=== PATIENT | female | born 1985 | race Caucasian/White ===

== ENCOUNTER → 2017-04-26 | Outpatient (CLI) | payer BC, OTHER ==
[~2017-04-26] MED LIST: FERR325T18 PO; IBUP-1780 PO; OXYC-471 PO; PREN1TAB39 PO; PREN1TAB76 PO
--- NOTE | 2017-04-26 16:30 | Diagnostic Imaging Report ---
EXAMINATION: Ultrasound soft tissue. INDICATION: Right inguinal pain. COMPARISON: There are no prior studies available for comparison. FINDINGS: Reportedly, there is clinical concern regarding inguinal fullness. The ultrasound examination of both inguinal canals fails to show any sign of herniation of the bowel into either inguinal canal. IMPRESSION: There is no evidence for herniation of the bowel into either inguinal canal. Dictated by: Dictated on workstation # [id number]
== END ==
LOC: RAD 14:55
PROVIDERS: ATTEND Nurse Practitioner Family
DX: R10.31 Right lower quadrant pain (principal)
CPT/HCPCS: 76999

== ENCOUNTER 2018-03-05 08:03 | Observation (INO) | payer BC ==
[~2018-03-05] VITALS: Ht 170.2 cm; Wt 55.8 kg
[2018-03-05] MEDS ORDERED: KETOROLAC 60 MG/2 ML VIAL IM STA (08:54)
[2018-03-05] MEDS ORDERED: ORPHENADRINE 60 MG/2 ML (NORFLEX) AMP IM STA (08:54)
--- NOTE | 2018-03-05 09:09 | ED Back Pain ---
General Chief Complaint: Back Problems Stated Complaint: BACK PAIN Nursing Triage Note: PT CO OF BACK PAIN PT OUT OF CAR BY THIS RN,TO ROOM 10 PER W/C PT DENIES INJURY TO BACK STATES HAS BEEN HURTING FOR A FEW DAYS BUT HAD SUDDEN ONSET OF PAIN APPROX 30 MIN AGO. PT CRYING Nursing Sepsis Screen: No Definite Risk Source of Information: Patient Exam Limitations: No Limitations History of Present Illness Date Seen by Provider: Mar 05, 2018 Time Seen by Provider: 08:45 Initial Comments Here with report of low back pain that started over the last week but is much worse today. Denies bowel or bladder problems. Denies recent injury. She had taken some iogf-jul-mebxabv medicine before but that was not working. She has not had any medicine today. Denies fever or chills. Location: Paraspinous Muscles Timing/Duration: 1 Week Severity: Moderate Pain/Injury Location: Back Radiation: Buttocks, Upper Legs Method of Injury: Unknown Modifying Factors: Improves With Immobilization; Worse With Movement Associated Symptoms: muscle spasms, weakness; No numbness in legs/feet; tingling in legs/feet; No sensory/motor loss; lower back pain; No loss of bladder control, No loss of bowel control Allergies and Home Medications Allergies Coded Allergies: No Known Drug Allergies (Unverified , 10/18/15) Home Medications Cyclobenzaprine HCl 10 Mg Tablet, 10 MG PO Q8H PRN for SPASMS Prescribed by: EVANGELISTA HAMILTON on 03/05/18 1248 Hydrocodone Bit/Acetaminophen 1 Tab Tab, 1-2 EACH PO Q6H PRN for PAIN-MODERATE Prescribed by: EVANGELISTA HAMILTON on 03/05/18 1248 Prednisone 20 Mg Tab, 40 MG PO DAILY Prescribed by: EVANGELISTA HAMILTON on 03/05/18 1248 Patient Home Medication List Home Medication List Reviewed: Yes Review of Systems Constitutional: see HPI; No chills, No fever Respiratory: no symptoms reported Cardiovascular: no symptoms reported Gastrointestinal: No abdominal pain, No nausea, No vomiting Genitourinary: no symptoms reported Musculoskeletal: see HPI, back pain, muscle pain, muscle stiffness, muscle weakness; No neck pain Skin: no symptoms reported Psychiatric/Neurological: Denies Anxiety, Denies Headache; Numbness; Denies Weakness Past Wvvjshd-Gzejyn-Kmsryg Hx Past Med/Social Hx: Reviewed Nursing Past Med/Soc Hx Patient Social History Alcohol Use: Regular Use Number of Drinks Today: 0 Alcohol Beverage of Choice: Wine Recreational Drug Use: No Smoking Status: Current Everyday Smoker Type Used: Cigarettes Former Smoker, Quit: Feb 07, 2015 Recent Foreign Travel: No Contact w/Someone Who Travel: No Recent Infectious Disease Expo: No Recent Hopitalizations: Yes (spinal meningitis @ age 16) Physical Abuse: No Sexual Abuse: No Immunizations Up To Date Tetanus Booster (TDap): Unknown PED Vaccines UTD: No Date of Influenza Vaccine: Jan 20, 2015 Past Medical History Surgeries: No (wisdom teeth) Respiratory: No Cardiac: No Neurological: No : No Last Menstrual Period: Feb 28, 2018 Reproductive Disorders: No Female Reproductive Disorders: Denies HIV/AIDS: No Gastrointestinal: Yes (JUST WITH -HAS SUBSIDED) Gastroesophageal Reflux Musculoskeletal: No Endocrine: No Loss of Vision: Denies Hearing Impairment: Denies Cancer: No Psychosocial: No Integumentary: No Blood Disorders: No Adverse Reaction/Blood Tranf: No (N/A) Family Medical History Reviewed Nursing Family Hx Patient reports no known family medical history. No Pertinent Family Hx Physical Exam Vital Signs Vital Signs - First Documented 03/05/18 08:10 Temp 98.3 Pulse 80 Resp 18 B/P (MAP) 116/92 (100) Pulse Ox 100 Capillary Refill : Less Than 3 Seconds Height, Weight, BMI Height: 5'7.00" Weight: 123lbs. 1.0oz. 55.816022fl; 29.8 BMI Method:Stated General Appearance: WD/WN, Moderate Distress HEENT: PERRL/EOMI, Pharynx Normal Neck: Non Tender, Supple Cardiovascular: Regular Rate, Rhythm, No Murmur Respiratory: Lungs Clear, Normal Breath Sounds Gastrointestinal: Non Tender, Soft Back: No Vertebral Tenderness, Decreased Range of Motion, Muscle Spasm, Other ( bilateral low back pain) Extremity: Normal Inspection, Non Tender, No Calf Tenderness Neurologic/Psychiatric: Alert, Oriented x3, No Motor/Sensory Deficits Skin: Normal Color, Warm/Dry Progress/Results/Core Measures Results/Orders Lab Results Laboratory Tests Test 03/05/18 08:30 03/05/18 11:35 Range/Units Urine Color YELLOW Urine Clarity CLEAR Urine pH 8 5-9 Urine Specific [place] 1.010 L 1.016-1.022 Urine Protein NEGATIVE NEGATIVE Urine Glucose (UA) NEGATIVE NEGATIVE Urine Ketones NEGATIVE NEGATIVE Urine Nitrite NEGATIVE NEGATIVE Urine Bilirubin NEGATIVE NEGATIVE Urine Urobilinogen NORMAL NORMAL MG/DL Urine Leukocyte Esterase NEGATIVE NEGATIVE Urine RBC (Auto) NEGATIVE NEGATIVE Urine RBC NONE /HPF Urine WBC NONE /HPF Urine Squamous Epithelial Cells RARE /HPF Urine Crystals NONE /LPF Urine Bacteria NEGATIVE /HPF Urine Casts NONE /LPF Urine Mucus NEGATIVE /LPF Urine Culture Indicated NO White Blood Count 10.2 4.3-11.0 10^3/uL Red Blood Count 4.49 4.35-5.85 10^6/uL Hemoglobin 13.9 11.5-16.0 G/DL Hematocrit 41 35-52 % Mean Corpuscular Volume 91 80-99 FL Mean Corpuscular Hemoglobin 31 25-34 PG Mean Corpuscular Hemoglobin Concent 34 32-36 G/DL Red Cell Distribution Width 13.1 10.0-14.5 % Platelet Count 230 130-400 10^3/uL Mean Platelet Volume 8.8 7.4-10.4 FL Neutrophils (%) (Auto) 75 42-75 % Lymphocytes (%) (Auto) 17 12-44 % Monocytes (%) (Auto) 6 0-12 % Eosinophils (%) (Auto) 2 0-10 % Basophils (%) (Auto) 0 0-10 % Neutrophils # (Auto) 7.6 1.8-7.8 X 10^3 Lymphocytes # (Auto) 1.8 1.0-4.0 X 10^3 Monocytes # (Auto) 0.6 0.0-1.0 X 10^3 Eosinophils # (Auto) 0.2 0.0-0.3 10^3/uL Basophils # (Auto) 0.0 0.0-0.1 10^3/uL Sodium Level 142 135-145 MMOL/L Potassium Level 3.7 3.6-5.0 MMOL/L Chloride Level 108 H 98-107 MMOL/L Carbon Dioxide Level 24 21-32 MMOL/L Anion Gap 10 5-14 MMOL/L Blood Urea Nitrogen 7 7-18 MG/DL Creatinine 0.78 0.60-1.30 MG/DL Estimat Glomerular Filtration Rate > 60 BUN/Creatinine Ratio 9 Glucose Level 91 70-105 MG/DL Calcium Level 9.4 8.5-10.1 MG/DL Corrected Calcium 9.2 8.5-10.1 MG/DL Total Bilirubin 0.6 0.1-1.0 MG/DL Aspartate Amino Transf (AST/SGOT) 21 5-34 U/L Alanine Aminotransferase (ALT/SGPT) 13 0-55 U/L Alkaline Phosphatase 41 40-136 U/L C-Reactive Protein High Sensitivity 0.12 0.00-0.50 MG/DL Total Protein 6.5 6.4-8.2 GM/DL Albumin 4.2 3.2-4.5 GM/DL My Orders Orders - EVANGELISTA HAMILTON MD Ua Culture If Indicated (03/05/18 08:54) Urine Bedside (03/05/18 08:54) Ketorolac Injection (Toradol Injection) (03/05/18 08:54) Orphenadrine Injection (Norflex Injectio (03/05/18 08:54) Ct Lumbar Spine Wo (03/05/18 10:14) Hydrocodone/Apap 5/325 Tablet (Lortab 5 (03/05/18 10:29) Us Gallbladder 32766 (03/05/18 11:25) Cbc With Automated Diff (03/05/18 11:25) Comprehensive Metabolic Panel (03/05/18 11:25) Hs C Reactive Protein (03/05/18 11:25) Prednisone Tablet (Deltasone Tablet) (03/05/18 11:30) Fentanyl Injection (Sublimaze Injection (03/05/18 13:00) Saline Lock/Iv-Start (03/05/18 13:00) Medications Given in ED Current Medications Medications Dose Ordered Sig/Maria Elena Route Start Time Stop Time Status Last Admin Dose Admin Prednisone 40 mg ONCE ONCE PO 03/05/18 11:30 03/05/18 11:31 DC 03/05/18 11:49 40 MG Vital Signs/I&O 03/05/18 08:10 Temp 98.3 Pulse 80 Resp 18 B/P (MAP) 116/92 (100) Pulse Ox 100 Blood Pressure Mean: 100 Progress Progress Note : Progress Note Seen and evaluated. Toradol 60 mg IM, Norflex 60 mg IM and UA ordered. If this is not working then we will continue with narcotics if needed. Patient is trying to give urine sample but is having difficulty with standing. She was placed on bed perry but is having difficulty with that. She would like to continue to try that and avoid catheter if possible. 1030: We will get CT of the lumbar spine as patient is still having frozen living of pain. 1130: No acute findings on CT scan except for some chronic degeneration compression findings. Patient still in a fair amount of pain. Prednisone 40 mg by mouth ordered. We will get labs and ultrasound of gallbladder as patient is very concerned about her gallbladder. 1240: I have reviewed extensively the results of all findings with the patient. She was still concerned but is becoming more okay with going home. She asked that I speak with her primary care doctor, Dr. Lowry. I did this and he agrees with my plan. Patient will be discharged home with prescriptions. I did discuss all of this with the patient and family and they are in agreement now. Discharge home with return precautions. Patient and family verbalize understanding of instructions and agreement with plan. 1300: At discharge, patient unable to stand up or move without severe pain. Unable to put patient in wheelchair for transfer home. Ultimately, patient will be admitted for intractable back pain. IV established and fentanyl 50 g IV ordered. I discussed the case with Dr. Lowry and he accepts patient for admission, observation status. Patient and family agree with plan. Diagnostic Imaging Diagonstic Imaging: CT Plain Films/CT/US/NM/MRI: other Comments VIA [facility], [facility]. [place], [place] NAME: STEPHEN PLATT [facility] REC#: [id number] PT STATUS: REG ER : 1985 PHYSICIAN: EVANGELISTA HAMILTON MD ADMIT DATE: 03/05/18/ER Draft Date of Exam:03/05/18 CT LUMBAR SPINE WO CLINICAL INDICATION: Patient with no history of trauma with pain for 1.5 weeks. Patient fell today. EXAM: Axial CT scan of the lumbar spine performed without IV contrast with sagittal and coronal reformatted images. COMPARISON: None. FINDINGS: There is no acute lumbar spine fracture or dislocation. There are mild chronic compression deformities involving the inferior endplates of the T12, L1, and L5 vertebrae and upper endplate of the L2 vertebra likely related to chronic Schmorl's nodes. There is no significant bony central canal or bony neural foramen narrowing. There is no significant paraspinal soft tissue abnormality. IMPRESSION: 1: There is no acute lumbar spine fracture or dislocation. 2: There are chronic Schmorl's nodes involving the thoracolumbar vertebrae. Dictated on workstation # [id number] Dict: 03/05/18 1050 Trans: 03/05/18 1105 [id number] Interpreted by: SONI MCCOY MD Electronically signed by: Departure Communication (Admissions) Time/Spoke to Admitting Phy: 13:00 Impression Primary Impression: Intractable low back pain Additional Impressions: Lumbar radiculopathy Back strain Qualified Codes: S39.012A - Strain of muscle, fascia and tendon of lower back , initial encounter Disposition: ADMITTED INPATIENT Condition: Stable Admissions Decision to Admit Reason: Admit from ER (General) Decision to Admit/Date: Mar 05, 2018 Time/Decision to Admit Time: 13:00 Departure-Patient Inst. Referrals: CICI LOWRY MD (PCP/Family) Primary Care Physician Patient Instructions: Radiculopathy (DC), Lumbar Muscle Strain (DC) Add. Discharge Instructions: All discharge instructions reviewed with patient and/or family. Voiced understanding. Take medications as directed. You may take ibuprofen 400 or 600 mg every 8 hours as needed for pain. You may take acetaminophen/Tylenol 1000 mg every 8 hours as needed for pain but do not take if you're taking the prescribed pain medicine as they both have acetaminophen in then. You may use ffsb-goi-lozuwvi preparation patches such as icy hot with lidocaine or Aspercreme with lidocaine are similar to area of concern to help reduce pain and spasms. Follow-up with your Dr. in a few days for recheck. Return for worse pain, fever, weakness, problems walking or going to the bathroom or other concerns as needed. Scripts Prednisone (Prednisone) 20 Mg Tab 40 MG PO DAILY, #12 TAB 0 Refills Prov: EVANGELISTA HAMILTON MD 03/05/18 Hydrocodone Bit/Acetaminophen (Hydrocodone/Acetaminophen 5/325mg Tablet) 1 Tab Tab 1-2 EACH PO Q6H PRN for PAIN-MODERATE MDD 10, #15 TAB 0 Refills Prov: EVANGELISTA HAMILTON MD 03/05/18 Cyclobenzaprine HCl (Cyclobenzaprine HCl) 10 Mg Tablet 10 MG PO Q8H PRN for SPASMS, #15 TAB 0 Refills Prov: EVANGELISTA HAMILTON MD 03/05/18 Copy Copies To 1: CICI LOWRY MD, TIMOTHY D MD Mar 05, 2018 09:09
[2018-03-05 09:26] LABS: BILIRUBIN,URINE NEGATIVE (NEGATIVE); CLARITY,URINE CLEAR; COLOR,URINE YELLOW; GLUCOSE, URINE (UA) NEGATIVE (NEGATIVE); KETONES,URINE NEGATIVE (NEGATIVE); LEUKOCYTE ESTERASE ,URINE NEGATIVE (NEGATIVE); NITRITE,URINE NEGATIVE (NEGATIVE); PH,URINE 8 (5-9); PROTEIN,URINE NEGATIVE (NEGATIVE); UROBILINOGEN,URINE NORMAL (NORMAL)
[2018-03-05 09:36] LABS: BACTERIA,URINE NEGATIVE /HPF; SQUAMOUS EPITHELIAL CELL,UR RARE /HPF
[2018-03-05] MEDS ORDERED: HYDROcodone/APAP 5 MG/325 MG (LORTAB) TAB PO STA (10:29)
--- NOTE | 2018-03-05 11:06 | Diagnostic Imaging Report ---
CLINICAL INDICATION: Patient with no history of trauma with pain for 1.5 weeks. Patient fell today. EXAM: Axial CT scan of the lumbar spine performed without IV contrast with sagittal and coronal reformatted images. COMPARISON: None. FINDINGS: There is no acute lumbar spine fracture or dislocation. There are mild chronic compression deformities involving the inferior endplates of the T12, L1, and L5 vertebrae and upper endplate of the L2 vertebra likely related to chronic Schmorl's nodes. There is no significant bony central canal or bony neural foramen narrowing. There is no significant paraspinal soft tissue abnormality. IMPRESSION: 1: There is no acute lumbar spine fracture or dislocation. 2: There are chronic Schmorl's nodes involving the thoracolumbar vertebrae. Dictated by: Dictated on workstation # [id number]
[2018-03-05] MEDS ORDERED: predniSONE 20 MG TAB PO ONE (11:30)
[2018-03-05 11:43] LABS: BASOPHILS % (AUTO) 0 % (0-10); EOSINOPHILS # (AUTO) 0.2 10^3/uL (0.0-0.3); EOSINOPHILS % (AUTO) 2 % (0-10); HEMATOCRIT 41 % (35-52); HEMOGLOBIN 13.9 G/DL (11.5-16.0); LYMPHOCYTES # (AUTO) 1.8 X 10^3 (1.0-4.0); LYMPHOCYTES % (AUTO) 17 % (12-44); MEAN CORPUSCULAR HEMOGLOBIN 31 PG (25-34); MEAN CORPUSCULAR HGB CONC 34 G/DL (32-36); MEAN CORPUSCULAR VOLUME 91 FL (80-99); MEAN PLATELET VOLUME 8.8 FL (7.4-10.4); MONOCYTES # (AUTO) 0.6 X 10^3 (0.0-1.0); MONOCYTES % (AUTO) 6 % (0-12); NEUTROPHILS # (AUTO) 7.6 X 10^3 (1.8-7.8); NEUTROPHILS % (AUTO) 75 % (42-75); PLATELET COUNT 230 10^3/uL (130-400); RED BLOOD COUNT 4.49 10^6/uL (4.35-5.85); RED CELL DISTRIBUTION WIDTH 13.1 % (10.0-14.5); WHITE BLOOD COUNT 10.2 10^3/uL (4.3-11.0)
[2018-03-05 12:04] LABS: ALANINE AMINOTRANSFERASE 13 U/L (0-55); ALBUMIN 4.2 GM/DL (3.2-4.5); ALKALINE PHOSPHATASE 41 U/L (40-136); BILIRUBIN,TOTAL 0.6 MG/DL (0.1-1.0); BUN/CREATININE RATIO 9; CALCIUM 9.4 MG/DL (8.5-10.1); CARBON DIOXIDE 24 MMOL/L (21-32); CHLORIDE 108 MMOL/L (98-107); CREATININE SERUM 0.78 MG/DL (0.60-1.30); GFR ESTIMATED > 60; GLUCOSE 91 MG/DL (70-105); POTASSIUM 3.7 MMOL/L (3.6-5.0); SODIUM 142 MMOL/L (135-145); TOTAL PROTEIN 6.5 GM/DL (6.4-8.2)
[2018-03-05] MEDS ORDERED: PRD20T PO (12:48)
[2018-03-05] MEDS ORDERED: ACHD5005 PO (12:48)
[2018-03-05] MEDS ORDERED: CYCL10TA9 PO (12:48)
[2018-03-05] MEDS ORDERED: fentaNYL INJECTION 100 MCG/2 ML AMP IVP STA (13:00)
[2018-03-05 13:55] VITALS: BP 131/91
[2018-03-05] MEDS ORDERED: KETOROLAC 30 MG/ML VIAL IV PRN (14:15)
[2018-03-05] MEDS ORDERED: CYCLOBENZAPRINE 10 MG (FLEXERIL) TAB PO PRN (14:15)
[2018-03-05] MEDS ORDERED: CATHETER FLUSH 10 ML SYR IV PRN (14:15)
[2018-03-05] MEDS ORDERED: fentaNYL INJECTION 100 MCG/2 ML AMP IV PRN (14:15)
--- NOTE | 2018-03-05 14:52 | Diagnostic Imaging Report ---
INDICATION: Severe back pain TECHNIQUE: Multiple grayscale sonographic images were obtained of the right upper quadrant of the abdomen. CORRELATION STUDY: None FINDINGS: LIVER: There is uniform echotexture within the visualized portions of the liver. There is normal, hepatopedal direction of flow within the main portal vein. Liver length 18 cm. GALLBLADDER: The gallbladder demonstrates no definitive shadowing gallstones. No abnormal gallbladder wall thickening or pericholecystic fluid. COMMON BILE DUCT: Nondilated at 3 mm. PANCREAS: Visualized portions appearing unremarkable. RIGHT KIDNEY: Measures 10.4 cm. No hydronephrosis. AORTA/IVC: Not well visualized. OTHER: None. IMPRESSION: 1. Negative appearing right upper quadrant abdominal ultrasound. Dictated by: Dictated on workstation # [id number]
[2018-03-05] MEDS ORDERED: FLU QUADRIvalent (5+ YOA) 2018-2019 (AFLURIA) 0.5 ML IM ONE (15:00)
[2018-03-05 16:19] VITALS: BP 113/67
[2018-03-05] MEDS: HYDROcodone/APAP 5 MG/325 MG (LORTAB) TAB PO PRN (16:52)
--- NOTE | 2018-03-05 17:46 | History & Physicial ---
History of Present Illness History of Present Illness Reason for visit/HPI 33-year-old female presents to [facility] emergency department during the morning of March 05, 2018 with severe back pain. She does report the back pain has been slowly getting worse over the past one week. She denies any recent trauma and has no specific injury of spinal or back injury. On further history she does report having what she describes as "gallbladder" symptoms. Today at the worst her pain was 10 over 10 She has been treated already with IV pain medications as well as given steroids. Date of Admission Mar 05, 2018 at 13:32 Date Seen by a Provider: Mar 05, 2018 Time Seen by a Provider: 16:40 I consulted on this patient on 03/05/18 17:41 Attending Physician Cici Mdasen MD Admitting Physician Cici Madsen MD Consult Allergies and Home Medications Allergies Coded Allergies: No Known Drug Allergies (Unverified , 10/18/15) Home Medications Cyclobenzaprine HCl 10 Mg Tablet, 10 MG PO Q8H PRN for SPASMS Prescribed by: EVANGELISTA HAMILTON on 03/05/18 1248 Prednisone 20 Mg Tab, 40 MG PO DAILY Prescribed by: EVANGELISTA HAMILTON on 03/05/18 1248 Patient Home Medication List Home Medication List Reviewed: Yes Past Jvuoogn-Jupunj-Exbuxk Hx Patient Social History Marrital Status: Number of Children: 2 Number of living children: 2 Alcohol Use: Regular Use Number of Drinks Today: HH Alcohol Beverage of Choice: Wine Recreational Drug Use: No Smoking Status: Current Everyday Smoker Former Smoker, Quit: Feb 07, 2015 Type Used: Cigarettes Physical Abuse Screen: No Sexual Abuse: No Recent Foreign Travel: No Contact w/other who traveled: No Recent Hopitalizations: Yes (spinal meningitis @ age 16) Recent Infectious Disease Expo: No Immunizations Up To Date Tetanus Booster (TDap): Unknown Pediatric: No Date of Influenza Vaccine: Jan 20, 2015 Surgeries No (wisdom teeth) Respiratory No Cardiovascular No Neurological No Reproductive System : No Last Menstrual Period: Feb 28, 2018 Hx Reproductive Disorders: No HIV/AIDS: No Female Reproductive Disorders: Denies Gastrointestinal Yes (JUST WITH -HAS SUBSIDED) Gastroesophageal Reflux Musculoskeletal No Endocrine History of Endocrine Disorders: No HEENT Loss of Vision: Denies Hearing Impairment: Denies Cancer No Psychosocial History of Psychiatric Problem: No Integumentary History of Skin or Integumenta: No Blood Transfusions History of Blood Disorders: No Adverse Reaction to a Blood Tr: No (N/A) Family Medical History Significant Family History: No Pertinent Family Hx Family Hx: Patient reports no known family medical history. Review of Systems Constitutional: see HPI Physical Exam Vital Signs Vital Signs - First Documented 03/05/18 08:10 Temp 98.3 Pulse 80 Resp 18 B/P (MAP) 116/92 (100) Pulse Ox 100 Capillary Refill : Less Than 3 Seconds Height, Weight, BMI Height: 5'7.00" Weight: 123lbs. 0.0oz. 55.370129jp; 19.3 BMI Method:Stated General Appearance: Mild Distress (currently on the floor but she has had pain medications) Eyes: Bilateral Eye Normal Inspection HEENT: Moist Mucous Membranes Neck: Full Range of Motion, Normal Inspection, Non Tender, Supple Respiratory: Chest Non Tender, Lungs Clear, Normal Breath Sounds Cardiovascular: Regular Rate, Rhythm, No Edema, No Murmur Gastrointestinal: Soft, Other (she has slightly tender in the right upper quadrant at Rios's point) Rectal: Deferred Back: Normal Inspection, Other (no rashes) Extremity: Normal Capillary Refill Neurologic/Psychiatric: Alert, Oriented x3, No Motor/Sensory Deficits, Normal Mood/Affect Skin: Normal Color Lymphatic: No Adenopathy Comments NAME: STEPHEN PLATT MED REC#: [id number] PT STATUS: ADM Marix[place] : 1985 PHYSICIAN: EVANGELISTA HAMILTON MD ADMIT DATE: 03/05/18/ Signed Date of Exam: 03/05/18 CT LUMBAR SPINE WO CLINICAL INDICATION: Patient with no history of trauma with pain for 1.5 weeks. Patient fell today. EXAM: Axial CT scan of the lumbar spine performed without IV contrast with sagittal and coronal reformatted images. COMPARISON: None. FINDINGS: There is no acute lumbar spine fracture or dislocation. There are mild chronic compression deformities involving the inferior endplates of the T12, L1, and L5 vertebrae and upper endplate of the L2 vertebra likely related to chronic Schmorl's nodes. There is no significant bony central canal or bony neural foramen narrowing. There is no significant paraspinal soft tissue abnormality. IMPRESSION: 1: There is no acute lumbar spine fracture or dislocation. 2: There are chronic Schmorl's nodes involving the thoracolumbar vertebrae. Dictated by: Dictated on workstation # [id number] Dict: 03/05/18 1050 Trans: 03/05/181717 Interpreted by: SONI MCCOY MD Electronically signed by: SONI MCCOY MD 03/05/188 NAME: STEPHEN PLATT [facility] REC#: [id number] PT STATUS: ADM Marixa : 1985 PHYSICIAN: EVANGELISTA HAMILTON MD ADMIT DATE: 03/05/18 Signed Date of Exam: 03/05/18 US GALLBLADDER [id number] INDICATION: Severe back pain TECHNIQUE: Multiple grayscale sonographic images were obtained of the right upper quadrant of the abdomen. CORRELATION STUDY: None FINDINGS: LIVER: There is uniform echotexture within the visualized portions of the liver. There is normal, hepatopedal direction of flow within the main portal vein. Liver length 18 cm. GALLBLADDER: The gallbladder demonstrates no definitive shadowing gallstones. No abnormal gallbladder wall thickening or pericholecystic fluid. COMMON BILE DUCT: Nondilated at 3 mm. PANCREAS: Visualized portions appearing unremarkable. RIGHT KIDNEY: Measures 10.4 cm. No hydronephrosis. AORTA/IVC: Not well visualized. OTHER: None. IMPRESSION: 1. Negative appearing right upper quadrant abdominal ultrasound. Dictated by: Dictated on workstation # [id number] Dict: 03/05/18 1448 Trans: 03/05/18 144 Interpreted by: KAT KEN DO Electronically signed by: KAT KEN DO 03/05/18 1449 Assessment/Plan Assessment and Plan 1. Severe intractable back pain -etiology is uncertain at this time as she has no history of back pain or spinal /vertebral pain -she does give a history of gallbladder issues in the past and this will be further investigated with hepatobiliary with ejection fraction in the morning Admission Diagnosis 1. Severe intractable back pain -etiology is uncertain at this time as she has no history of back pain or spinal /vertebral pain Admission Status: Observation Reason for Inpatient Admission: Further pain management and further workup of her back pain with right-sided discomfort Clinical Quality Measures DVT/VTE Risk/Contraindication: Risk Factor Score Per Nursin RFS Level Per Nursing on Admit: 1=Low/No VTE PPX CICI MADSEN MD Mar 05, 2018 17:46
[2018-03-05 20:15] VITALS: BP 100/61
[2018-03-05] MEDS: CATHETER FLUSH 10 ML SYR IV SCH (20:49)
[2018-03-06 00:06] VITALS: BP 105/55
[2018-03-06 04:07] VITALS: BP 111/60
[2018-03-06] MEDS: HYDROcodone/APAP 5 MG/325 MG (LORTAB) TAB PO PRN ×2 (06:00→12:53)
[2018-03-06] MEDS: CATHETER FLUSH 10 ML SYR IV SCH ×2 (06:03→13:44)
[2018-03-06 06:08] LABS: BASOPHILS % (AUTO) 0 % (0-10); EOSINOPHILS # (AUTO) 0.2 10^3/uL (0.0-0.3); EOSINOPHILS % (AUTO) 1 % (0-10); HEMATOCRIT 42 % (35-52); HEMOGLOBIN 14.3 G/DL (11.5-16.0); LYMPHOCYTES # (AUTO) 2.6 X 10^3 (1.0-4.0); LYMPHOCYTES % (AUTO) 19 % (12-44); MEAN CORPUSCULAR HEMOGLOBIN 31 PG (25-34); MEAN CORPUSCULAR HGB CONC 34 G/DL (32-36); MEAN CORPUSCULAR VOLUME 92 FL (80-99); MEAN PLATELET VOLUME 9.2 FL (7.4-10.4); MONOCYTES # (AUTO) 0.8 X 10^3 (0.0-1.0); MONOCYTES % (AUTO) 6 % (0-12); NEUTROPHILS # (AUTO) 10.1 X 10^3 (1.8-7.8); NEUTROPHILS % (AUTO) 74 % (42-75); PLATELET COUNT 249 10^3/uL (130-400); RED CELL DISTRIBUTION WIDTH 13.3 % (10.0-14.5); WHITE BLOOD COUNT 13.7 10^3/uL (4.3-11.0)
[2018-03-06 06:27] LABS: ALANINE AMINOTRANSFERASE 13 U/L (0-55); ALBUMIN 3.9 GM/DL (3.2-4.5); ALKALINE PHOSPHATASE 38 U/L (40-136); BILIRUBIN,TOTAL 0.6 MG/DL (0.1-1.0); BUN/CREATININE RATIO 15; CALCIUM 9.2 MG/DL (8.5-10.1); CARBON DIOXIDE 22 MMOL/L (21-32); CHLORIDE 109 MMOL/L (98-107); CREATININE SERUM 0.78 MG/DL (0.60-1.30); GFR ESTIMATED > 60; GLUCOSE 95 MG/DL (70-105); POTASSIUM 4.1 MMOL/L (3.6-5.0); SODIUM 141 MMOL/L (135-145); TOTAL PROTEIN 6.2 GM/DL (6.4-8.2)
[2018-03-06] MEDS: predniSONE 20 MG TAB PO SCH ×2 (07:22→12:53)
[2018-03-06 08:00] VITALS: BP 173/73
--- NOTE | 2018-03-06 11:54 | Diagnostic Imaging Report ---
Indication: Right sided abdominal pain. Patient was administered 5.4 mCi technetium 99m Choletec intravenously and imaging over the abdomen was performed. At one hour patient ingested 8 ounces of Ensure and gallbladder ejection fraction was calculated. There is homogeneous uptake of activity by the liver. There is prompt excretion of activity into the common duct and gallbladder. Passage of activity into the small bowel is seen. Gallbladder ejection fraction is normal at 39%. Impression: Normal HIDA scan and gallbladder ejection fraction. Dictated by: Dictated on workstation # [id number]
[2018-03-06 12:00] VITALS: BP 112/75
--- NOTE | 2018-03-06 15:17 | HISTORY AND PHYSICAL ---
DATE OF SERVICE: 03/06/2018 ATTENDING PRIMARY CARE PHYSICIAN: Dr. Madsen. The patient is a 33-year-old female known to us. We had seen him before in the office for symptomatic skin lesions, which were removed. She presented to the Emergency Department with right upper abdominal quadrant pain with radiation towards the back. She had an ultrasound performed, which did not show any abnormalities. She continued to have pain and was admitted. Since that time, she has had continued pain and a HIDA scan was performed, which did worsen her symptoms with pain in the right upper abdominal quadrant with radiation towards the back. Her ejection fraction was on the lower end of normal at around 33%. However, she did have reproduction of symptoms or even worsening of symptoms consistent with a positive test for biliary dyskinesia. She would like to have the procedure done soon; however, does have two small children at home, would like to go home today and then schedule an outpatient laparoscopic cholecystectomy in the next 2 days, which we will proceed with. PAST MEDICAL HISTORY: None. PAST SURGERIES: section 16. ALLERGIES: No known drug allergies. MEDICATIONS: None. SOCIAL HISTORY: Positive smoke, four cigarettes a day, ten total years, one alcoholic drink per day. FAMILY HISTORY: Noncontributory. REVIEW OF SYSTEMS: Well-nourished female currently guarded secondary to the pain; however, she did receive some oral pain medication and this seems to be helping. Intermittent episodes of nausea and vomiting usually after heavy or greasy meals. No hematemesis, no coffee ground emesis. She also has intermittent episodes of diarrhea, no red blood per rectum, no dark tarry stools. No fever, chills, no recent inadvertent weight loss. All other review of systems negative. PHYSICAL EXAMINATION: CHEST: Clear. Good breath sounds bilaterally. HEART: Regular, no murmurs. HEENT: No scleral icterus. No cervical lymphadenopathy. ABDOMEN: There is pain in the right upper abdominal quadrant upon deep palpation. No peritoneal signs. SKIN: Warm, dry. ASSESSMENT AND PLAN: A 33-year-old female with symptomatic biliary dyskinesia. The natural history of gallbladder disease was explained to the patient including potential for progression for formation of gallstones as well as continued symptoms as well as risk of acute cholecystitis. She understanding the risks and benefits of surgery and would like to proceed with a laparoscopic cholecystectomy which we will schedule as an outpatient here in the next two days. Job ID: [id number] DocumentID: [id number] Dictated Date: 03/06/2018 14:50:49 Camp Attendant Date: 03/06/2018 15:16:16 Dictated By: AMEE KIRKLAND MD
--- NOTE | 2018-03-06 16:52 | Discharge Summary ---
Diagnosis/Chief Complaint Date of Admission Mar 05, 2018 at 13:32 Date of Discharge Mar 06, 2018 at 15:08 Discharge Date: Mar 06, 2018 Discharge Time: 14:00 Admission Diagnosis Admission Diagnosis 1. Severe intractable thoracic back pain Discharge Diagnosis 1. Biliary dyskinesia accounting for her severe back pain Reason Hospital Visit 33-year-old female presents to [facility] emergency department during the morning of March 05, 2018 with severe back pain. She does report the back pain has been slowly getting worse over the past one week. She denies any recent trauma and has no specific injury of spinal or back injury. On further history she does report having what she describes as "gallbladder" symptoms. Today at the worst her pain was 10 over 10 She has been treated already with IV pain medications as well as given steroids. Discharge Summary Hospital Course Hospital Course patient was admitted to [facility] on March 05, 2018 after having severe intractable thoracic back pain. She was given pain medication fentanyl as well as hydrocodone. She was given muscle relaxers as well. During the evening of March 05, 2018 I spoke with patient regarding further workup including the hepatobiliary with ejection fraction. She would like to proceed since she does have a history of intolerance to certain greasy foods. In the morning of March 06 patient underwent hepatobiliary scan and she was found to have discomfort at time of the study. After the results of the study were available Dr. Valencia was notified of the findings. Most likely her pain is related to dysfunctional gallbladder or biliary dyskinesia. Her laboratory performed on March 06 was essentially unchanged. After Dr. Valencia visited with patient she is arranged to have outpatient gallbladder surgery or cholecystectomy. Labs Laboratory Tests 03/05/18 08:30: Urine Specific [place] 1.010L 03/05/18 11:35: Chloride Level 108H 03/06/18 05:45: Chloride Level 109H, White Blood Count 13.7H, Neutrophils # (Auto) 10.1H, Alkaline Phosphatase 38L, Total Protein 6.2L Procedures None. Consultations Dr Valencia - surgery Discharge Physical Examination Allergies: Coded Allergies: No Known Drug Allergies (Unverified , 10/18/15) Vitals & I&Os Vital Signs Date Time Temp Pulse Resp B/P (MAP) Pulse Ox O2 Delivery O2 Flow Rate FiO2 03/06/18 12:00 98.4 56 18 112/75 (87) 97 Room Air General Appearance: No Acute Distress Respiratory: Clear to Auscultation Cardiovascular: Regular Rate Abdominal: Soft (with bowel sounds normal), Other (tenderness in the right upper quadrant noted) Extremities: No Edema Skin: No Rashes Psych/Mental Status: Mental Status NL Discussion & Recommendations case discussed with Dr. Valencia at 1310 and he was made aware of the findings regarding the hepatobiliary ejection fraction study. Patient was noted to be symptomatic at time of injection during the study. Dr. Valencia will arrange to see patient shortly. Discharge Home Medications Reviewed and agree with Discharge Medication list on patient's Discharge Instruction sheet Instructions to Patient/Family Please see electronic discharge instructions given to patient. Clinical Quality Measures DVT/VTE Risk/Contraindication: Risk Factor Score Per Nursin RFS Level Per Nursing on Admit: 1=Low/No VTE PPX CICI LOWRY MD Mar 06, 2018 16:52
== END 2018-03-06 15:08 | disposition home or self-care (01) ==
LOC: EDUNIT# 08:03 → ER 08:07 → 4TH 13:32
PROVIDERS: ADMIT Family Medicine; ATTEND Family Medicine
DX: K82.8 Other specified diseases of gallbladder (principal); F17.210 Nicotine dependence, cigarettes, uncomplicated
CPT/HCPCS: 36415; 51702; 72131; 76705; 78227; 80053; 81000; 84703; 85025; 86141; G0378

== ENCOUNTER 2018-03-07 05:35 | Outpatient (CLI) | payer BC ==
[~2018-03-07] VITALS: Ht 170.2 cm; Wt 55.8 kg
[~2018-03-07 05:35] MED LIST changes: +ACHD5005 PO; +CYCL10TA9 PO; +PRD20T PO
[2018-03-08] MEDS ORDERED: HYDR-3816 PO (08:29)
== END 2018-03-07 10:08 | disposition home or self-care (01) ==
LOC: PREOP 05:35
PROVIDERS: ATTEND Surgery
DX: Z01.818 Encounter for other preprocedural examination (principal)

== ENCOUNTER 2018-03-08 07:27 | Day surgery (SDC) | payer BC ==
[~2018-03-08] VITALS: Ht 170.2 cm; Wt 55.8 kg
[2018-03-08] MEDS ORDERED: ceFAZolin INJECTION 1,000 MG in NS (IVPB) 50 ML IV ONE (07:45)
[2018-03-08] MEDS ORDERED: BUP/EPI 0.5% 1:200,000 (SENSORCAINE) 30 ML VIAL ONE (07:47)
[2018-03-08 08:10] VITALS: BP 139/83
[2018-03-08] MEDS ORDERED: MIDAZOLAM 2 MG/2 ML (VERSED) VIAL ONE (08:17)
[2018-03-08] MEDS ORDERED: proPOfol 200 MG/20 ML (DIPRIVAN) VIAL IV ONE (08:17)
[2018-03-08] MEDS ORDERED: fentaNYL INJECTION 100 MCG/2 ML AMP ONE (08:17)
[2018-03-08] MEDS ORDERED: LIDOCAINE PF 2% 5 ML (XYLOCAINE) VIAL ONE (08:17)
[2018-03-08] MEDS ORDERED: ROCURONIUM 10 MG/ML 5 ML SYRINGE IV ONE (08:17)
[2018-03-08] MEDS ORDERED: DEXAMETHASONE 10 MG/ML (DECADRON) 1 ML VIAL ONE (08:17)
[2018-03-08] MEDS ORDERED: ONDANSETRON 4 MG/2 ML (SDV) Z0FRAN ONE (08:17)
[2018-03-08] MEDS: LACTATED RINGERS 1,000 ML IV PRN ×2 (08:19→10:46)
--- NOTE | 2018-03-08 08:26 | Progress Note-Pre Operative ---
Pre-Operative Progress Note H&P Reviewed The H&P was reviewed, patient examined and no changes noted. Date Seen by Provider: Mar 08, 2018 Time Seen by Provider: 08:15 Date H&P Reviewed: Mar 08, 2018 Time H&P Reviewed: 08:20 Pre-Operative Diagnosis: Symptomatic Biliary dyskinesia SIMONA CURRY APRN Mar 08, 2018 8:26 am
[2018-03-08] MEDS ORDERED: HYDR-3816 PO (08:29)
--- NOTE | 2018-03-08 08:29 | Discharge Inst-Surgical ---
D/C Lap Instructions-KIDO New, Converted, or Re-Newed RX: RX on Chart Follow Up Appt in 2 weeks Activity as tolerated No driving for 24 hours No driving while on pain medications Incentive Spirometry use every 2 hours while awake Regular Diet Symptoms to Report: Fever over 101 degree F, Nausea/Vomiting Infection Signs and Symptoms to report: Increased redness, Foul odor of wound, Increased drainage Bathing instructions: May shower Operative Area Clean/Dry; Keep incision clean/dry If any problems/questions: Contact your physician or go to Emergency Room SIMONA CURRY APRN Mar 08, 2018 8:29 am
[2018-03-08] MEDS ORDERED: ACETAMINOPHEN 325 MG TABLET PO PRN (08:30)
[2018-03-08] MEDS ORDERED: morphine INJ 10 MG/ML 1ML (SYR OR VIAL) IVP PRN (08:30)
[2018-03-08] MEDS ORDERED: ONDANSETRON 4 MG/2 ML (SDV) Z0FRAN IVP PRN ×2 (08:30→10:45)
[2018-03-08] MEDS ORDERED: HYDROcodone/APAP 5 MG/325 MG (LORTAB) TAB PO ONE (08:30)
[2018-03-08] MEDS ORDERED: NEOSTIGMINE 1 MG/ML 5 ML SYRINGE ONE (10:12)
[2018-03-08] MEDS ORDERED: GLYCOPYRROLATE 0.2 MG/ML (ROBINUL) 2 ML VIAL ONE (10:12)
[2018-03-08] MEDS ORDERED: KETOROLAC 30 MG/ML VIAL ONE (10:24)
--- NOTE | 2018-03-08 10:34 | Progress Note-Post Operative ---
Post-Operative Progess Note Surgeon (s)/Freelance Art Director (s) Surgeon AMEE KIRKLAND MD Freelance Art Director: brittany givens MEDICAL REVIEW COORDINATOR Pre-Operative Diagnosis Symptomatic Biliary dyskinesia Post-Operative Diagnosis same Procedure & Operative Findings Date of Procedure 03/08/18 Procedure Performed/Findings laparoscopic cholecystectomy Anesthesia Type GET Estimated Blood Loss Estimated blood loss (mL): minimal Specimens/Packing Specimens Removed gallbladder AMEE KIRKLAND MD Mar 08, 2018 10:34
[2018-03-08] MEDS ORDERED: SEVOFLURANE (ULTANE) 15 ML INHAL SOLN ONE (10:36)
[2018-03-08] MEDS ORDERED: HYDROmorphone 2 MG/ML VIAL (DILAUDID) ONE (10:37)
[2018-03-08] MEDS ORDERED: morphine INJ 10 MG/ML 1ML (SYR OR VIAL) IVP ONE (10:45)
[2018-03-08] MEDS ORDERED: HYDROmorphone 2 MG/ML VIAL (DILAUDID) IV ONE (10:45)
[2018-03-08 11:30] VITALS: BP 132/85
[2018-03-08] MEDS ORDERED: HYDROcodone/APAP 5 MG/325 MG (LORTAB) TAB ONE (11:38)
[2018-03-08 12:00] VITALS: BP 115/89
--- NOTE | 2018-03-08 12:29 | Anesthesia-General Post-Op ---
General Patient Condition Mental Status/LOC: Same as Preop Cardiovascular: Satisfactory Nausea/Vomiting: Absent Respiratory: Satisfactory Pain: Controlled Complications: Absent Post Op Complications Complications None Follow Up Care/Instructions Patient Instructions None needed. Anesthesia/Patient Condition Patient Condition Patient is doing well, no complaints, stable vital signs, no apparent adverse anesthesia problems. No complications reported per nursing. D/C home per [facility] Criteria: Yes FRED LIRA CRNA Mar 08, 2018 12:29
[2018-03-08 12:30] VITALS: BP 133/80
[2018-03-08 12:55] VITALS: BP 133/80
--- NOTE | 2018-03-08 18:13 | OPERATIVE REPORT ---
DATE OF SERVICE: 03/08/2018 ATTENDING PRIMARY CARE PHYSICIAN: Dr. Madsen. PREOPERATIVE DIAGNOSIS: Symptomatic biliary dyskinesia. POSTOPERATIVE DIAGNOSIS: Symptomatic biliary dyskinesia. PROCEDURE: Laparoscopic cholecystectomy. SURGEON: Amee Kirkland MD MANAGER DISASTER RECOVERY: Zan Alonso APRN. ANESTHESIA: General endotracheal. ESTIMATED BLOOD LOSS: Minimal. FINDINGS: A distended gallbladder with mild omental adhesions to the fundus of the gallbladder. The stomach, omentum and small bowel appeared normal. DISPOSITION: The patient tolerated the procedure well. INDICATIONS: The patient is a 33-year-old female known to us. We have seen her before for symptomatic skin lesions, which were removed and found to be benign. She had presented to the Emergency Department with right upper abdominal quadrant pain with radiation towards the back. An ultrasound was performed, which did not show any abnormalities. She was admitted and continued to have pain and HIDA scan was performed, which did show the lower end of normal at around 33%. However, upon doing the test, she did have reproduction of symptoms with worsening pain in the right upper abdominal quadrant as well as back pain, which would be considered a positive test for biliary dyskinesia. She was then discharged home because she does have two small children at home and wanted to have the surgery done as soon as possible, which will encompass a laparoscopic cholecystectomy. DESCRIPTION OF PROCEDURE: The patient was brought to the operating room, laid supine on the table. After adequate IV pain and sedating medications and general endotracheal intubation, the abdomen was prepped and draped in standard surgical fashion. A 0.5% Marcaine with epinephrine was then used to anesthetize the overlying skin in the left upper abdominal quadrant and a small transverse skin incision was made using a 15 blade. An 0 silk suture was applied to the medial aspect of the incision for retraction and a Veress needle inserted with a low opening pressure of 0 mmHg. The abdomen was insufflated to 15 mmHg pressure. The Veress needle was removed and a 5 mm Xcel trocar was placed followed by a 5 mm 45 degree angle laparoscope visualizing the peritoneal cavity. A 4-quadrant abdominal exploration was performed. What was visualized, the liver, omentum, small bowel and stomach appeared normal. There was a dilated gallbladder with mild omental adhesions towards the fundus of the gallbladder consistent with symptomatic biliary dyskinesia. Under direct visualization, we then proceeded to place a supraumbilical 10 mm port after the skin and peritoneal lining were anesthetized using 0.5% Marcaine with epinephrine and a transverse skin incision was made using a 15 blade. In a similar manner, a right upper abdominal quadrant 5 mm port was placed. The patient was then placed in reverse Trendelenburg position as well as plane right side up, left side down. The fundus of the gallbladder was then retracted anteriorly and superiorly. The omental adhesions were then taken down using blunt dissection as well as electrocautery on the hook instrument. The hepatoduodenal ligament was then opened using cautery as well as blunt dissection using the hook instrument. The entire critical view of safety was identified including the triangle of Calot as well as the cystic duct and artery as the only two structures going into the gallbladder as well as the cystic plate behind the proximal gallbladder. A timeout was then taken and the cystic duct and artery were then clipped proximally and distally and cut with EndoShears. The gallbladder was then dissected off of the liver bed using electrocautery and hook instrument with visualization of good hemostasis as well as no leaking ducts of Luschka. The gallbladder was removed through the 10 mm port site using an EndoCatch bag. The 10 mm port site fascia and peritoneum were then closed under direct visualization using a Alber-Narinder device and an 0 Vicryl suture. The abdomen was then desufflated and the remaining ports were removed. All skin incisions were closed using 4-0 Monocryl running subcuticular sutures. Wounds were then cleaned and covered with Dermabond. The patient tolerated the procedure well. We will start IV and oral pain medication as well as a clear liquid diet. Once she is tolerating clears, has good pain control with oral pain medications, ambulating well, we will discharge her home. She will be instructed to do no heavy lifting or exertion for the next two weeks. Job ID: [id number] DocumentID: [id number] Dictated Date: 03/08/2018 10:41:35 International Project Engineer Date: 03/08/2018 18:12:10 Dictated By: AMEE KIRKLAND MD
== END 2018-03-08 12:55 | disposition home or self-care (01) ==
LOC: SDC 07:27
PROVIDERS: ATTEND Surgery
DX: K81.1 Chronic cholecystitis (principal); K82.8 Other specified diseases of gallbladder; Z11.2 Encounter for screening for other bacterial diseases; K21.9 Gastro-esophageal reflux disease without esophagitis; F17.210 Nicotine dependence, cigarettes, uncomplicated; Z79.899 Other long term (current) drug therapy
CPT/HCPCS: 84703; 87081; 88304; 94664